=== PATIENT | female | born 1995 | race Caucasian/White ===

== ENCOUNTER 2016-06-12 18:25 | Emergency (ER) | payer OTHER ==
[~2016-06-12] VITALS: Ht 170.2 cm; Wt 65.5 kg
[~2016-06-12 18:25] MED LIST: ONDA8TAB10 PO
[2016-06-12 18:32] VITALS: BP 116/74; PULSE 78; RESP 16; O2SAT 100
[2016-06-12 19:02] LABS: Mean Corpuscular Volume 87.2 fL (81-100)
--- NOTE | 2016-06-12 19:39 | NUR ---
MAME Quinones Pt reports 16w3d gestation. Doppler FHT to low pelvis over 5min, FHT baseline 135bpm, increases to 153bpm, no decreases, regular rate and rhythm.
--- NOTE | 2016-06-12 20:00 | ED.REPORT ---
HPI- Female Date of Service June 12, 2016 ED Provider: Kaci Swanson MD The patient is a 20 year old female who is currently 16 weeks , who presents to the emergency department complaining of "sharp" left-sided abdominal pain that began a few days ago. The pain has been constant since onset. The pain radiates around to the left side of her back. Nothing seems to make it better or worse. She has also had a subjective fever. She denies dysuria , hematuria, urinary urgency/frequency changes, nausea, vomiting or chills. She had an ultrasound at 11 weeks completed at [facility] and everything looked okay. She has had 2 previous miscarriages. Nursing Notes Stated Complaint: WITH ABDOMINAL PAIN/SENT FROM [facility] Chief Complaint: Female Abdominal Pain Nursing Notes Reviewed: Yes Allergies: Coded Allergies: Sulfa (Sulfonamide Antibiotics) (Verified Allergy, Mild, Rash, 06/12/16) sumatriptan (Verified Allergy, Mild, Burning head, 06/12/16) latex (Verified Adverse Reaction, Intermediate, Rash, 06/12/16) Scheduled PRN Ondansetron ODT (Ondansetron ODT) 8 Mg Tab.rapdis 8 MG PO QID PRN PRN For Nausea General Time Seen by MD: 19:58 Chief Complaint Abdominal pain... (Suprapubic) Hx Obtained From: Patient Arrived By: Walk-in Sudden in Onset?: Yes Onset Occurred: 2 days ago Symptom Duration: Since onset Location: : Abdomen lower Quality: Painful Radiation: Back Severity: Current: Moderate Severity: Maximum: Severe Status: Positive - home urine HCG Recent Healthcare: No recent hospitalization, Recent doctor visit Similar Sx Previous: No Past Medical History Past Medical History Frequent UTIs and kidney infections Past Surgical History Reports: Appendectomy Family History noncontributory Smoking History Unknown if Ever Smoker Social History Other Social History: Good social support, Local resident Ambulatory Status Independent Review of Systems Constitutional: Reports: Fever, Denies: Chills GI: Reports: Abdominal pain Female: Reports: Flank pain, Pelvic pain, , Denies: Dysuria, Hematuria, Urinary frequency, Urinary urgency, Urination decreased, Urination increased Musculoskeletal: Reports: Back pain Complete sys rev & neg: except as marked. Physical Exam Initial Vital Signs Vital Signs (First) Date Time Temp Pulse Resp B/P Pulse Ox O2 Delivery O2 Flow Rate FiO2 06/12/16 18:32 36.8 78 16 116/74 100 Room Air Initial VS: Reviewed, Vital signs normal Head / Eyes: Atraumatic, Normocephalic, PERRL ENT: Mucous membranes moist, Conjunctiva normal, No scleral icterus Neck: Supple, Non-tender, Full range of motion Respiratory: Breath sounds normal, Clear to auscultation, No respiratory distress Cardiovascular: Regular rate & rhythm, Heart sounds normal, Intact distal pulses Lymphatic: No lymphadenopathy Extremities: Vascular intact, Neuro intact, No swelling, No tenderness Skin: Warm, Dry, No cyanosis Neurologic: Alert, Oriented, Nonfocal Psychiatric: Mood/affect normal, Behavior normal, Normal thought content Female Genitourinary: Exam deferred General/Constitutional: Awake, Alert, No acute distress, Cooperative Abdomen: Soft, No guarding, No rebound, BS normoactive, No distention, No hernia, No palpable mass, No pulsatile mass Generalized lower abdominal discomfort. Flank / Spine / Paraspinal: Positive: Flank tender L : FHTs NL, FHT present by U/S, movement present Interpretation & Diagnostics Lab Results Interpretation Result Diagram: 06/12/167 06/12/16 1857 Test 06/12/16 18:57 06/12/16 20:28 White Blood Count 11.4th/mm3 (3.8-10.1) Red Blood Count 4.47mil/mm3 (3.90-5.20) Hemoglobin 13.4g/dL (12.0-15.6) Hematocrit 39.0% (35.0-46.0) Mean Corpuscular Volume 87.2fL (81-100) Mean Corpuscular Hemoglobin 30.0pg (27.0-35.0) Mean Corpuscular Hemoglobin Concent 34.4% (32.0-37.0) Red Cell Distribution Width 12.9% (12.3-15.4) Platelet Count 218bil/L (150-400) Neutrophils (%) (Auto) 67.7% (40-74) Lymphocytes (%) (Auto) 21.6% (14-46) Monocytes (%) (Auto) 8.2% (4-12) Eosinophils (%) (Auto) 1.6% (0-5) Basophils (%) (Auto) 0.2% (0-3) Sodium Level 139mEq/L (134-144) Potassium Level 3.6mEq/L (3.5-5.2) Chloride Level 104mEq/L (97-108) Carbon Dioxide Level 20mmol/L (18-29) Blood Urea Nitrogen 10mg/dL (6-20) Creatinine 0.44mg/dL (0.57-1.00) Estimat Glomerular Filtration Rate 259mL/min (>59) Glucose Level 89mg/dL (60-99) Calcium Level 9.1mg/dL (8.5-10.1) Total Bilirubin 0.2mg/dL (0.0-1.2) Aspartate Amino Transf (AST/SGOT) 14U/L (0-50) Alanine Aminotransferase (ALT/SGPT) 6U/L (0-32) Alkaline Phosphatase 38U/L (25-150) Total Protein 6.4g/dL (6.4-8.4) Albumin 4.0g/dL (3.4-5.0) Hold [place]itt Top Tube Received (Received) Urine Color Straw (YELLOW) Urine Appearance Clear (CLEAR,HAZY) Urine pH 6.0 (5.0-8.0) Urine Specific [place] 1.015 (1.003-1.035) Urine Protein Negativemg/dL (NEG,TRACE) Urine Glucose (UA) Negativemg/dL (NEGATIVE) Urine Ketones Negativemg/dL (NEGATIVE) Urine Occult Blood Negative (NEGATIVE) Urine Nitrite Negative (NEGATIVE) Urine Bilirubin Negative (NEGATIVE) Urine Urobilinogen Normalmg/dL (NORMAL) Urine Leukocyte Esterase Negative (NEGATIVE) Urine RBC 0-2/hpf (0-2) Urine WBC 0-5/hpf (0-5) Urine Epithelial Cells Few/hpf (NONE-MOD) Urine Crystals None seen (NONE SEEN) Urine Bacteria Few/hpf (NONE-FEW) Urine Hyaline Casts None/lpf (NONE) Urine Granular Casts None seen (NONE SEEN) Urine Waxy Casts None seen (NONE SEEN) Urine Red Blood Cell Casts None seen (NONE SEEN) Urine White Blood Cell Casts None seen (NONE SEEN) Urine Mucus None seen (None Seen) Urine Trichomonas None seen (NONE SEEN) Urine Yeast None (NONE SEEN) Urinalysis Comment None Urine Culture Reflexed Not indicated Re-Eval/Medical Decision Med Decision/Clinical Course The patient presents with lower abdominal pain and left flank pain. She has a benign exam and her fetus is moving with a normal heart rate. I explained the patient that she needs to have a formal ultrasound. Her symptoms do not seem consistent with renal colic and she does not have pyelonephritis. Given an IUP was seen on topic is also ruled out. A partial list of other differential diagnoses considered were gastroenteritis, threatened , and bowel obstruction. Source of Hx: Old records Re-Evaluation/Progress : Time of Eval: 20:44 Re-Evaluation/Progress Note: The patient is requesting to be discharged at this time. Counseled Regarding: Diagnosis, Lab results, Need for follow-up, When/why to return to ED Discharge & Departure Impression: Primary Impression: Abdominal pain of unknown etiology Additional Impression: Weeks of gestation: 16 weeks Qualified Code: Z3A.16 - 16 weeks gestation of Disposition: Home Discharge Condition All VS Reviewed: Yes Condition: Stable Patient Instructions: (ED) Additional Instructions: Thank you for entrusting us with your care today. There is no sign of infection in your blood or urine. Make sure to followup with your doctor within 1 week for re-evaluation. You need to have a formal ultrasound. Seek care for a fever, vomiting, or any other new or concerning symptoms. Referrals: NOPCP (PCP) Scribe Attestation Portions of this note were transcribed by Caroline Cox. I, Dr. Swanson personally performed the history, physical exam and medical decision-making; I reviewed and confirmed the accuracy of the information in the transcribed note. Signed by: Mery Gordon, 06/12/2016 at 2100. Kaci Swanson MD June 12, 2016 20:00 Caroline Cox June 12, 2016 20:07
[2016-06-12 20:36] LABS: BASOPHILS % (AUTO) 0.2 % (0-3); EOSINOPHILS % (AUTO) 1.6 % (0-5); MONOCYTES % (AUTO) 8.2 % (4-12); NEUTROPHILS % (AUTO) 67.7 % (40-74)
[2016-06-12 20:51] LABS: APPEARANCE,URINE CLEAR (CLEAR,HAZY); COLOR,URINE STRAW (YELLOW); OCCULT BLOOD,URINE NEGATIVE (NEGATIVE); UROBILINOGEN,URINE NORMAL (NORMAL)
[2016-06-12 20:52] VITALS: BP 118/75; PULSE 76; RESP 16; O2SAT 100
== END 2016-06-12 20:49 | disposition home or self-care (01) ==
LOC: SED 18:25
DX: O26.892 Other specified pregnancy related conditions, second trimester (principal); Z3A.16 16 weeks gestation of pregnancy; Z88.2 Allergy status to sulfonamides; Z88.8 Allergy status to other drugs, medicaments and biological substances; Z91.040 Latex allergy status